=== PATIENT | female | born 1955 | race Caucasian/White ===

== ENCOUNTER 2016-08-29 14:54 | Emergency (ER) | payer OTHER ==
[~2016-08-29] VITALS: Ht 167.6 cm; Wt 63.5 kg
--- NOTE | 2016-08-29 14:54 | NUR ---
CRAMPING AND DIARRHEA FROM "ULCERATIVE COLITIS FLARE UP" X 6 WEEKS. NAD NOTED. VSS. AMB WITH STEADY GAIT. RR EVEN AND UNLABORED. MD AT BEDSIDE FOR EVAL.
[2016-08-29 15:51] LABS: BASOPHILS % (AUTO) 0.2 % (0.0-2.0); EOSINOPHILS # (AUTO) 0.1 /CMM (0.0-0.7); EOSINOPHILS % (AUTO) 1.1 % (0.0-6.0); HEMATOCRIT 35 % (33-45); HEMOGLOBIN 11.5 g/dL (11.5-14.8); LYMPHOCYTES # (AUTO) 0.9 /CMM (0.8-4.8); LYMPHOCYTES % (AUTO) 9.9 % (20.0-44.0); MEAN CORPUSCULAR HEMOGLOBIN 28 PG (26.0-33.0); MEAN CORPUSCULAR HGB CONC 33 g/dl (31.0-36.0); MEAN CORPUSCULAR VOLUME 87 fL (82-100); MONOCYTES # (AUTO) 0.7 /CMM (0.1-1.30); MONOCYTES % (AUTO) 7.1 % (2.0-12.0); NEUTROPHILS # (AUTO) 7.7 /CMM (1.8-8.9); NEUTROPHILS % (AUTO) 81.7 % (43.0-81.0); PLATELET COUNT (AUTO) 253 /CMM (150-450); RDW COEFFICIENT OF VARIATION 17.2 (11.5-15.0); RED BLOOD CELL COUNT(AUTO) 4.05 MIL/uL (4.0-5.2); WHITE BLOOD COUNT (AUTO) 9.5 K/uL (4.3-11.0)
[2016-08-29] MEDS ORDERED: IV NS 0.9% 1,000 ML BAG IV ONE (16:00)
[2016-08-29] MEDS ORDERED: HYDROCODONE/APAP 5/325MG 1 EACH TABLET PO ONE (16:00)
[2016-08-29 16:02] LABS: CALCIUM, SERUM 8.7 mg/dL (8.5-10.1); CREATININE 0.8 mg/dL (0.6-1.3); POTASSIUM 4.2 mmol/L (3.5-5.1)
[2016-08-29 16:07] LABS: ALBUMIN 3.5 g/dL (3.4-5.0); BILIRUBIN,TOTAL 0.3 mg/dL (0.2-1.0); TOTAL PROTEIN, SERUM 7.5 g/dL (6.4-8.2)
[2016-08-29] MEDS ORDERED: HYDROCODONE/APAP 5/325MG 1 EACH TABLET ONE (16:37)
--- NOTE | 2016-08-29 16:45 | NUR ---
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
[2016-08-29 18:04] VITALS: BP 119/74
== END 2016-08-29 18:06 | disposition home or self-care (01) ==
LOC: ER 14:57
DX: K51.90 Ulcerative colitis, unspecified, without complications (principal); E11.9 Type 2 diabetes mellitus without complications; J44.9 Chronic obstructive pulmonary disease, unspecified
CPT/HCPCS: 36415; 80048-TC; 80076-TC; 83690-TC; 85025-TC; 85652-TC; 86140-TC; A4606; J7030; Z7610

== ENCOUNTER 2016-10-30 17:54 | Emergency (ER) | payer OTHER ==
[~2016-10-30] VITALS: Ht 165.1 cm; Wt 62.6 kg
[2016-10-30 18:11] VITALS: BP 157/93
== END 2016-10-30 18:35 | disposition home or self-care (01) ==
LOC: ER 17:56
DX: Z76.0 Encounter for issue of repeat prescription (principal); K51.90 Ulcerative colitis, unspecified, without complications; E11.9 Type 2 diabetes mellitus without complications; J44.9 Chronic obstructive pulmonary disease, unspecified
CPT/HCPCS: A4606; Z7610

== ENCOUNTER 2017-04-02 18:21 | Inpatient (IN) | payer OTHER ==
[~2017-04-02] VITALS: Ht 165.1 cm; Wt 60.3 kg
--- NOTE | 2017-04-02 18:30 | NUR ---
PATIENT TO ED DT COUGH AND CONGESTION. PATIENT NOTICED TINGED BLOOD IN HER SPUTUM TODAY. PATIENT IS AWAKE AND ALERT, APPEARS IN NO APPARENT DISTRESS. RESPIRATION EVEN AND UNLABORED. PT REPORTED CHEST DISCOMFORT WHEN COUGHING. AFEBRILE. VSS
[2017-04-02] MEDS ORDERED: predniSONE 20 MG TABLET ONE (18:43)
[2017-04-02] MEDS ORDERED: IPRATROPIUM NEB FS 0.5 MG/2.5 ML AMPUL.NEB ONE (18:50)
[2017-04-02] MEDS ORDERED: ALBUTEROL FS 2.5 MG/3 ML VIAL.NEB ONE (18:50)
--- NOTE | 2017-04-02 18:54 | NUR ---
REPORT GIVEN TO SHERI CHAUHAN
[2017-04-02] MEDS ORDERED: predniSONE 20 MG TABLET PO ONE (19:00)
[2017-04-02] MEDS ORDERED: ALBUTEROL FS 2.5 MG/3 ML VIAL.NEB CONTNEB ONE (19:00)
[2017-04-02] MEDS ORDERED: IPRATROPIUM NEB FS 0.5 MG/2.5 ML AMPUL.NEB NEB ONE (19:00)
[2017-04-02 19:03] LABS: BASOPHILS % (AUTO) 0.3 % (0.0-2.0); EOSINOPHILS # (AUTO) 0.3 /CMM (0.0-0.7); EOSINOPHILS % (AUTO) 3.3 % (0.0-6.0); HEMATOCRIT 34 % (33-45); HEMOGLOBIN 10.8 g/dL (11.5-14.8); LYMPHOCYTES # (AUTO) 1.3 /CMM (0.8-4.8); MEAN CORPUSCULAR HEMOGLOBIN 22 PG (26.0-33.0); MEAN CORPUSCULAR HGB CONC 32 g/dl (31.0-36.0); MEAN CORPUSCULAR VOLUME 71 fL (82-100); MONOCYTES # (AUTO) 0.8 /CMM (0.1-1.30); MONOCYTES % (AUTO) 7.5 % (2.0-12.0); NEUTROPHILS # (AUTO) 7.9 /CMM (1.8-8.9); NEUTROPHILS % (AUTO) 75.9 % (43.0-81.0); PLATELET COUNT (AUTO) 309 /CMM (150-450); RDW COEFFICIENT OF VARIATION 19.6 (11.5-15.0); RED BLOOD CELL COUNT(AUTO) 4.83 MIL/uL (4.0-5.2); WHITE BLOOD COUNT (AUTO) 10.3 K/uL (4.3-11.0)
[2017-04-02 19:06] LABS: CREATININE 0.7 mg/dL (0.6-1.3); POTASSIUM 4.1 mmol/L (3.5-5.1)
[2017-04-02 19:15] LABS: TROPONIN I 0.021 ng/mL (0.00-0.056)
--- NOTE | 2017-04-02 20:23 | NUR ---
PA'S IN ROOM WALKING WITH PATIENT TO TEST 02 SATURATION/DESATURATION
[2017-04-02] MEDS ORDERED: METF10002 PO (21:21)
[2017-04-02] MEDS ORDERED: FLUO40CA8 PO (21:21)
[2017-04-02] MEDS ORDERED: NAPR220T66 PO (21:21)
[2017-04-02] MEDS ORDERED: SULF500T8 PO (21:21)
[2017-04-02] MEDS ORDERED: GABA-532 PO (21:21)
[2017-04-02] MEDS ORDERED: PANT40TA4 PO (21:21)
[2017-04-02] MEDS ORDERED: 70/30 INSULIN SQ ×2 (21:21)
[2017-04-02] MEDS ORDERED: PRED5TAB48 PO (21:21)
[2017-04-02 21:30] VITALS: BP 145/74
--- NOTE | 2017-04-02 21:35 | NUR ---
REPORT GIVEN TO JOSE WADE FOR CONTINUATION OF CARE.
[2017-04-02 21:36] VITALS: BP 146/80
--- NOTE | 2017-04-02 21:48 | NUR ---
IV removed. Catheter intact and site benign. Pressure and 4x4 applied to site. No bleeding noted.Patient discharged to home in stable condition. Written and verbal after care instructions given. Patient verbalizes understanding of instruction. COPY OF ALL LABS, IMAGING, AND EKG GIVEN. PT AMBULATED OUT WITH A STEADY GAIT. VSS.
[2017-04-02] MEDS: BLOOD SUGAR DIAGNOSTIC 1 EACH STRIP IN SCH (21:57)
[2017-04-02] MEDS ORDERED: DEXTROSE 50%-WATER 50 ML DISP.SYRIN IV PRN (22:00)
[2017-04-02] MEDS ORDERED: LEVOFLOXACIN 500 MG /D5W 100ML 500 MG in PREMIX 1 EA IV SCH (22:00)
[2017-04-02] MEDS ORDERED: ALBUTEROL FS 2.5 MG/0.5 ML VIAL.NEB NEB PRN (22:00)
[2017-04-02] MEDS ORDERED: ACETAMINOPHEN 325 MG TABLET PO PRN (22:00)
[2017-04-02] MEDS ORDERED: IPRATROPIUM NEB FS 0.5 MG/2.5 ML AMPUL.NEB NEB PRN (22:00)
--- NOTE | 2017-04-02 22:00 | NUR ---
SPORTS MEDIA NOTES REPORT RECEIVED FROM JOSE WADE. PATIENT ARRIVED AT UNIT VIA GURNEY, ACCOMPANIED BY RN AND SISTER. PATIENT BREATHING EVEN AND UNLABORED. NO SOB OR ACUTE DISTRESS NOTED. ON O2 AT 4L/MIN VIA NC. NO NASAL IRRITATION OR BLEEDING NOTED. PATIENT CALM AND RELAXED. DENIES ANY PAIN OR DISCOMFORT. PATIENT AFEBRILE, SKIN DRY AND WARM TO TOUCH. PATIENT AMBULATORY. TO BE ADMITTED ON TELEMETRY, CHART COMPUTER PLACED, WITH NORMAL SINUS RHYTHM. WILL CONTINUE TO MONITOR. PATIENT KEPT CLEAN, DRY AND COMFORTABLE. PROVIDED WITH CALM, SAFE, HAZARD-FREE ENVIRONMENT. BED LOCKED AND IN LOW POSITION, BILATERAL UPPER SIDE RAILS UP AND LOCKED. WILL CONTINUE TO MONITOR
[2017-04-02] MEDS: INSULIN REGULAR, HUMAN 100 UNIT/ML 3 ML VIAL SQ PRN (22:32)
[2017-04-02] MEDS ORDERED: LEVOFLOXACIN 500 MG /D5W 100ML 100 ML IV ONE (23:04)
[2017-04-03] VITALS: BP 145/74
[2017-04-03 04:00] VITALS: BP 126/88
[2017-04-03] MEDS: methylPREDNISolone SOD SUCC 40 MG/ML VIAL IV SCH ×2 (04:34→13:54)
[2017-04-03] MEDS: BLOOD SUGAR DIAGNOSTIC 1 EACH STRIP IN SCH ×3 (06:50→17:22)
[2017-04-03] MEDS: INSULIN REGULAR, HUMAN 100 UNIT/ML 3 ML VIAL SQ PRN ×3 (06:53→17:31)
--- NOTE | 2017-04-03 07:09 | NUR ---
FISH BAILER NOTES PATIENT RESTING INSIDE ROOM, SLEEPING BUT EASILY AROUSABLE THROUGH VERBAL AND TACTILE STIMULI. PATIENT BREATHING EVEN AND UNLABORED. NO SOB OR ACUTE DISTRESS NOTED. PATIENT AFEBRILE, SKIN DRY AND WARM TO TOUCH. NO CHANGES IN LOC NOTED AT THIS TIME. PATIENT REMAINS AFEBRILE, SKIN DRY AND WARM TO TOUCH. IV SITE IN PLACE ON LEFT FOREARM PATENT AND INTACT. NO BLEEDING OR SWELLING NOTED. CONTINUE WITH TELE MONITOR. NORMAL SINUS RHYTHM. WILL CONTINUE TO MONITOR. ALL NURSING NEEDS ATTENDED AND MET. ALL DUE MEDICATIONS GIVEN AND TOLERATED WELL. PROVIDED WITH CALM, SAFE, HAZARD-FREE ENVIRONMENT. CALL LIGHT WITHIN EASY REACH. WILL ENDORSE TO INCOMING SHIFT
--- NOTE | 2017-04-03 07:45 | NUR ---
DIRECTOR OF ATHLETICS OPENING NOTE RECEIVED BEDSIDE SBAR REPORT ON THE PATIENT. PATIENT IS A/O X3 FORGETFUL, ANXIOUS AT TIMES. PATIENT IS ASLEEP IN THE BED, EASILY AWAKEN. BED IS LOCKED IN LOWEST POSITION, SIDE RAILS UP X2, PATIENT IS AMBULATORY, BRP. CALL LIGHT WITHIN REACH. EDUCATED TO CALL FOR ASSISTANCE USING THE CALL LIGHT AND THE PATIENT VERBALIZED UNDERSTANDING. CHEST IS RISING EQUALLY BILATERALLY. DENIES PAIN/DISCOMFORT AT THIS TIME. ALL NEEDS ARE MET AT THIS TIME. WILL CONTINUE TO ASSESS/MONITOR THROUGHOUT THE SHIFT.
[2017-04-03 07:54] LABS: HEMATOCRIT 32 % (33-45); HEMOGLOBIN 9.9 g/dL (11.5-14.8); MEAN CORPUSCULAR HEMOGLOBIN 23 PG (26.0-33.0); MEAN CORPUSCULAR HGB CONC 31 g/dl (31.0-36.0); MEAN CORPUSCULAR VOLUME 72 fL (82-100); PLATELET COUNT (AUTO) 264 /CMM (150-450); RDW COEFFICIENT OF VARIATION 20.9 (11.5-15.0); RED BLOOD CELL COUNT(AUTO) 4.38 MIL/uL (4.0-5.2); WHITE BLOOD COUNT (AUTO) 7.9 K/uL (4.3-11.0)
[2017-04-03 08:00] VITALS: BP 155/82
[2017-04-03] MEDS ORDERED: predniSONE 5 MG TABLET PO SCH (08:30)
[2017-04-03] MEDS ORDERED: FLUT1DIS INH (08:54)
[2017-04-03] MEDS ORDERED: ALBU6.7H INH (08:55)
[2017-04-03] MEDS ORDERED: LEVO500T75 PO (08:56)
[2017-04-03] MEDS ORDERED: PRED20TA PO (08:56)
[2017-04-03] MEDS ORDERED: PANTOPRAZOLE 40 MG TABLET.DR PO SCH (09:00)
[2017-04-03] MEDS ORDERED: NAPROXEN 250 MG TABLET PO SCH (09:00)
[2017-04-03] MEDS ORDERED: SULFASALAZINE 500 MG TABLET PO SCH (09:00)
[2017-04-03] MEDS ORDERED: FLUOXETINE HCL 20 MG CAPSULE PO SCH (09:00)
[2017-04-03 09:14] LABS: LYMPHOCYTES % (MANUAL) 4 % (16-48); MONOCYTES % (MANUAL) 1 % (0-11.0); NEUTROPHILS % (MANUAL) 95 (42-76)
[2017-04-03] MEDS: GABAPENTIN 100 MG CAPSULE PO SCH ×2 (09:45→17:23)
[2017-04-03] MEDS: METFORMIN 500 MG TABLET PO SCH ×2 (09:46→17:23)
--- NOTE | 2017-04-03 09:50 | NUR ---
Documented previous shift's medication as non-admin to rid of passed due reminder on the emar.
[2017-04-03] MEDS: IPRATROPIUM NEB FS 0.5 MG/2.5 ML AMPUL.NEB NEB SCH ×2 (14:59→19:30)
[2017-04-03] MEDS: ALBUTEROL FS 2.5 MG/0.5 ML VIAL.NEB NEB SCH ×2 (14:59→19:30)
[2017-04-03 16:00] VITALS: BP 150/78
--- NOTE | 2017-04-03 17:11 | NUR ---
DISCHARGE NOTE DISCHARGE ORDER RECEIVED. DISCHARGE INSTRUCTIONS PROVIDED. DISCHARGE EDUCATION PERFORMED AT THE BEDSIDE USING TEACH BACK METHOD. IV CATHETER REMOVED WITH THE TIP INTACT. PATIENT TOLERATED PROCEDURE WELL. PATIENT IS CURRENTLY SATURATING 91% ON RA AT REST AND 89% UPON EXERTION. CALLED AND REPORTED TO DR. EDUARDO. PER DR. EDUARDO PATIENT IS STABLE TO GO HOME WITHOUT OXYGEN. PATIENT IS AWAITING FOR THE SYSTEM KERRI TO PICK HER UP. ALL NEEDS ARE MET. ALL BELONGINGS ARE ACCOUNTED FOR. ABRAM WILL LEAVE VIA PRIVATE CAR ACCOMPANIED BY THE SISTER, KERRI.
[2017-04-03] MEDS ORDERED: INSULN 70/30 ASP+PRT/ASP MIX 100 UNIT/ML CARTRIDGE SQ SCH (18:00)
--- NOTE | 2017-04-03 18:44 | NUR ---
PATIENT IS A/O X3 AWAKE AND RESPONSIVE IN BED. IV CATHETER REMOVED. OCLUSSIVE DRESSING APPLIED. PATIENT IS WEARING OWN CLOTHES, SITTING IN BED WATCHING TV WAITING FOR THE SISTER TO COME PICK HER UP. DISCHARGE INSTRUCTIONS AT THE BEDSIDE. BED IS LOCKED IN LOWEST POSITION, SIDE RAILS UP X2, PATIENT IS AMBULATORY, BRP. CALL LIGHT WITHIN REACH. EDUCATED TO CALL FOR ASSISTANCE USING THE CALL LIGHT AND THE PATIENT VERBALIZED UNDERSTANDING. CHEST IS RISING EQUALLY BILATERALLY. PATINE TIS SATURATING 90% ON RA. DENIES PAIN/DISCOMFORT. ALL NEEDS ARE MET AT THIS TIME. WILL ENDORSE TO THE NEXT SHIFT FOR BRIAN UNTIL PATIENT LEAVES THE UNIT.
[2017-04-04] MEDS ORDERED: INSULN 70/30 ASP+PRT/ASP MIX 100 UNIT/ML CARTRIDGE SQ SCH (09:00)
== END 2017-04-03 19:15 | disposition home or self-care (01) | DRG 140 ==
LOC: ER 18:27 → TELE 21:17 → MED 04-03 08:35
PROVIDERS: ADMIT Internal Medicine; ATTEND Internal Medicine
DX: J44.0 Chronic obstructive pulmonary disease with (acute) lower respiratory infection (principal); J18.9 Pneumonia, unspecified organism; J44.1 Chronic obstructive pulmonary disease with (acute) exacerbation; E11.9 Type 2 diabetes mellitus without complications; Z79.4 Long term (current) use of insulin; K51.90 Ulcerative colitis, unspecified, without complications
CPT/HCPCS: 36415; 71045-TC; 80048-TC; 82962-TC; 83880; 84484-TC; 85025-TC; 87081-TC; A4216; A4606; J1815; J1956; J2920; J7050; Z7610

== ENCOUNTER 2017-07-02 14:34 | Emergency (ER) | payer OTHER ==
[~2017-07-02] VITALS: Ht 167.6 cm; Wt 59.0 kg
[~2017-07-02 14:34] MED LIST: 70/30 INSULIN SQ; ALBU6.7H INH; FLUO40CA8 PO; FLUT1DIS INH; GABA-532 PO; LEVO500T75 PO; METF-442 PO; NAPR220T66 PO; PANT40TA4 PO; PRED20TA PO; PRED5TAB48 PO; SULF500T8 PO
[2017-07-02 14:41] VITALS: BP 143/97
== END 2017-07-02 16:19 | disposition home or self-care (01) ==
LOC: ER 14:39
DX: S92.342A Displaced fracture of fourth metatarsal bone, left foot, initial encounter for closed fracture (principal); S92.352A Displaced fracture of fifth metatarsal bone, left foot, initial encounter for closed fracture; S92.002A Unspecified fracture of left calcaneus, initial encounter for closed fracture; J44.9 Chronic obstructive pulmonary disease, unspecified; E11.9 Type 2 diabetes mellitus without complications; W18.39XA Other fall on same level, initial encounter; Y93.89 Activity, other specified; Y92.89 Other specified places as the place of occurrence of the external cause; Y99.8 Other external cause status
CPT/HCPCS: 73610; 73630; 99284; A4606; Z7610